=== PATIENT | female | born 1965 | race Caucasian/White ===

== ENCOUNTER 2017-03-24 14:48 | Inpatient (IN) | payer BC ==
[~2017-03-24] VITALS: Ht 152.4 cm; Wt 52.6 kg
--- NOTE | ~2017-03-24 | HP ---
Unit #: [id number] #: [id number] Patient: DIXON PATTEN [id number] [facility] [address] [place] [address] [id number] MR#: [id number] NAME: DIXON PATTEN ROOM: P252 Age: 51 Sex: F Admission Date: 03/24/2017 : 1965 Attending Physician: Maykel Griffin M.D. Admitting Physician: Maykel Griffin M.D. Primary Care Physician: Primary Care Physician No HISTORY AND PHYSICAL HISTORY OF PRESENT ILLNESS Dixon is a 51-year-old female admitted on 03/24/2017 for attempted suicide by overdosing on pills and hanging herself. She does not speak [place], and an charge entry was here for the exam. PAST MEDICAL HISTORY Hypertension. The patient currently on antibiotic, but unsure why. PAST SURGICAL HISTORY Complete hysterectomy. SOCIAL HISTORY Denies tobacco, alcohol, or illegal drug use. She is currently single and living with a cousin in [place]. FAMILY HISTORY Noncontributory. REVIEW OF SYSTEMS CONSTITUTIONAL: No fever or chills. HEENT: Denies any sore throat, ear pain or runny nose. CARDIOVASCULAR: Denies chest pain, irregular heart rhythm or palpitations. CHEST: Denies shortness of breath or cough. No hemoptysis. GASTROINTESTINAL: Denies nausea, vomiting, diarrhea or chronic constipation. ENDOCRINE: Denies history of increased thirst or urination. No recent significant weight loss or gain. GENITOURINARY: Denies dysuria, frequency, or hematuria. SKIN: Denies any rashes. HEMATOLOGIC: Denies history of increased bleeding or bruising. MUSCULOSKELETAL: Denies any hot, swollen joints. No generalized muscle pain. NEUROLOGIC: Denies problems with vision or speech. No frequent, severe headaches. No numbness, tingling or weakness in any extremities. Denies loss of bladder or bowel control. CURRENT MEDICATIONS Ceftin. ALLERGIES No known drug allergies. PHYSICAL EXAMINATION Unit #: [id number] #: [id number] Patient: DIXON PATTEN GENERAL: Alert, oriented, no acute distress. VITAL SIGNS: Blood pressure 131/78, heart rate 80, temperature 98.4. HEIGHT: 5 feet 0. WEIGHT: 116 pounds. SKIN: Warm, dry. No rashes or lesions, track narayanan, cuts, etc. HEENT: Normocephalic. TMs not viewed. Oronasal passages clear. Conjunctivae clear. PERRLA. EOM is intact. NECK: No lymphadenopathy or thyromegaly. HEART: Regular rate and rhythm. No murmur, gallop, or rub. LUNGS: Clear to auscultation bilaterally. ABDOMEN: Soft, nontender without palpable masses or hepatosplenomegaly. : Not assessed. EXTREMITIES: No evidence of cyanosis, clubbing, or edema. Moves all extremities independently without obvious deficit. NEUROLOGICAL: Grossly within normal limits. Cranial Nerves: II: Visual larsen are intact. III, IV AND : Extraocular movements are intact. Pupils are equal, round and reactive to light. V: Facial sensation is grossly normal. VII: Facial movements and expression are normal. VIII: Auditory acuity grossly intact. IX, X: Uvula is midline. Phonation is normal. XI: Patient shrugs shoulders and turns head normally. XII: Tongue protrudes in the midline. Sensory and Motor Function: Sensory and motor sensation is grossly normal. Motor: moves all extremities well. Coordination: Gait is normal. Deep Tendon Reflexes: Intact. IMPRESSION 1. Psychiatric admission. 2. Hypertension. The patient currently on antibiotics, but unsure why. RECOMMENDATIONS PSYCHIATRIC: Per psychiatrist. MEDICAL: No contraindication to participate in this facility's activities. MEDICAL PROGNOSIS Good. MEDICAL CONDITION Stable. Dictated by... Azucnea Canales TD: 03/25/2017 15:36 JOB #: [id number] Unit #: [id number] #: [id number] Patient: DIXON PATTEN HISTORY AND PHYSICAL Page 1 of 1 X KANG BACA APRN HISTORY AND PHYSICAL
--- NOTE | ~2017-03-24 | PN ---
Unit #: [id number] #: [id number] Patient: DIXON PATTEN [id number] [facility] [address] [place] [address] [id number] I MR#: [id number] NAME: DIXON PATTEN ROOM: [facility] Age: 51 Sex: F Admission Date: 03/24/2017 : 1965 Attending Physician: Maykel Griffin M.D. Admitting Physician: Maykel Griffin M.D. Primary Care Physician: Primary Care Physician Saskia IGNACIO NOTES DATE OF SERVICE: 03/26/2017 DISCUSSION Ms. Layne is a 51-year-old female, seen on 03/26/2017. The patient interviewed, chart reviewed, and obtained information from nursing staff. The patient was compliant, cooperative, interviewed with the help of an interpreter and translator. The patient reports mood is getting better, decrease in anxiety. Denied any thoughts of harming self or others. Complete review of systems unremarkable. MENTAL STATUS EXAMINATION General appearance, the patient dressed casually. Attention span and concentration, fair. Oriented in time, place, and person. Mood and affect, sad and dysphoric. Speech, monotone. Thought process, concrete. The patient denied any thoughts of harming self or others or any psychotic symptom. Recent and remote memory, poor. Insight and judgment, poor. DIAGNOSES Major depressive disorder, severe. ASSESSMENT AND PLAN Advised to continue with current medication and plan to consider discharge next week with a plan to follow up in outpatient program. Dictated by... Harvey Singer/carlitos TD: 03/26/2017 12:24 JOB #: [id number] Unit #: [id number] #: [id number] Patient: DIXON PATTEN ADONAYDALIA PROGRESS NOTES Page 1 of 1 X Maykel Griffin MD PROGRESS NOTE
--- NOTE | ~2017-03-24 | DS ---
Unit #: [id number] #: [id number] Patient: DIXON PATTEN [id number] [facility] [address] [place] [address] [id number] MR#: [id number] NAME: DIXON PATTEN ROOM: [facility] Age: 51 Sex: F Admission Date: 03/24/2017 : 1965 Discharge Date: 03/27/2017 Attending Physician: Maykel Griffin M.D. Primary Care Physician: Primary Care Physician No DISCHARGE SUMMARY REASON FOR ADMISSION Depression. DIAGNOSTIC STUDIES LABORATORY DATA: Unremarkable. HOSPITAL COURSE The patient was admitted to inpatient unit on March 24 and discharged on 03/27/2017. The patient was treated with group therapy, individual therapy, and medication management with the help of dental front office assistant. The patient was responsive to treatment. Subsequently the patient was discharged with a plan to follow up in outpatient clinic. DISCHARGE MEDICATIONS 1. Celexa 20 mg daily for depression. 2. Trazodone 50 mg at bedtime for sleep. 3. Vistaril 25 mg twice daily for anxiety. DISCHARGE DIAGNOSES PSYCHIATRIC: Major depressive disorder, recurrent, severe. SECONDARY: Deferred. MEDICAL: Hypertension. STRESSORS: Psychosocial stressor. FOLLOWUP CARE The patient to follow up in outpatient clinic as per social sciences instructor. CONDITION AT DISCHARGE The patient pleasant, cooperative. Denied any psychotic symptom or any suicidal ideation. PROGNOSIS Guarded. DIET AND ACTIVITY As tolerated. Dictated by... Maykel Griffin M.D. [facility] [place] Unit #: [id number] #: [id number] Patient: DIXON PATTEN TD: 03/30/2017 07:01 JOB #: [id number] DISCHARGE SUMMARY Page 1 of 1 X Maykel Griffin MD X DISCHARGE SUMMARY
--- NOTE | ~2017-03-24 | PA ---
Unit #: [id number] #: [id number] Patient: DIXON VILLARREAL [id number] [facility] [address] [place] [address] [id number] I MR#: [id number] NAME: DIXON VILLARREAL ROOM: [facility] Age: 51 Sex: F Admission Date: 03/24/2017 : 1965 Date of Assessment: Attending Physician: Maykel Griffin M.D. Admitting Physician: Maykel Griffin M.D. Primary Care Physician: Primary Care Physician No PSYCHIATRIC ASSESSMENT INFORMANT Patient reliability, fair informant. Chart reliability, good. CHIEF COMPLAINT Depression and suicidal ideation. HISTORY OF PRESENT ILLNESS Ms. Dixon Villarreal is a 51-year-old, [place]-speaking female from [place], recently moved to [facility]. 5 years ago. Lives in [place]. The patient was admitted with the above-mentioned complaint. The patient was interviewed with the help of translator and interpreter. The patient reported family conflict moving out of the house, depression, crying spell, hopelessness, worthlessness, suicidal ideation. The patient denied any homicidal ideation or any psychotic symptom. Denied any use of any drugs or alcohol. The patient reports good support system from the relatives. The patient is needing inpatient admission at this time for psychiatric stabilization. PAST PSYCHIATRIC HISTORY Unknown for any history of any previous treatment. No history of any suicide attempt or any inpatient treatment. FAMILY HISTORY AND SOCIAL HISTORY The patient has a good support system from family, but currently having marital conflict, for 14 years. No history of abuse. MEDICAL HISTORY Remarkable for history of hypertension. Musculoskeletal, muscle strength and tone, no atrophy or abnormal movement. Gait normal. MEDICATION HISTORY The patient is on antihypertensive, medication unknown. ALLERGIES No known drug allergies are present. SUBSTANCE ABUSE HISTORY None. REVIEW OF SYSTEMS REVIEW OF SYSTEMS HEENT: Eyes, clear. Ears, nose, mouth, and throat; clear. Unit #: [id number] #: [id number] Patient: DIXON VILLARREAL CARDIOVASCULAR: Unremarkable. RESPIRATORY: Unremarkable. GI: Unremarkable. : Unremarkable. SKIN: Unremarkable. LYMPH NODE: Unremarkable. NEUROLOGIC: Unremarkable. ENDOCRINE: Unremarkable. HEMATOLOGIC: Unremarkable. ALLERGIC/IMMUNOLOGIC: Unremarkable. MUSCULOSKELETAL: Muscle strength and tone, no atrophy or abnormal movement. Gait normal. MENTAL STATUS EXAMINATION CONSTITUTIONAL: Measurement of vital signs; temperature 97.3, 82, 16, 101/56. Height 5 feet. Weight 116 pounds. GENERAL APPEARANCE: The patient dressed casually. The patient did not show any facial deformity. MUSCULOSKELETAL: Please see above. PSYCHIATRIC EXAMINATION Description of speech; regular rate, normal volume, normal articulation, coherent, and spontaneous. Description of thought process, goal directed. Description of association, intact. DIAGNOSES Psychiatric: Major depressive disorder, recurrent, severe. Secondary diagnosis: Deferred. Medical diagnosis: Hypertension. Stressors: Psychosocial stressors. PSYCHIATRIC PLAN AND TREATMENT GOAL AND DISCHARGE PLAN 1. Advised to admit the patient on the inpatient unit. Provide safe, supportive, and structured environment. 2. Ordered labs; CBC, CMP, UA, and UDS. 3. The patient to be monitored for any self-harming behavior. Advised Vistaril, trazodone, and Celexa combination. If needed, consider further adjustment of medication. The patient to follow up with the marriage and family social worker about placement. 4. Treatment goal; to attain euthymic mood, gain insight into her problem, and learn coping skills. 5. Discharge plan; plan to stabilize the patient and consider followup in outpatient program. ESTIMATED LENGTH OF STAY 3 to 5 days. Flory TD: 03/26/2017 03:51 JOB #: [id number] Dictated by... Unit #: [id number] #: [id number] Patient: DIXON VILLARREAL Harvey Singer TD: 03/26/2017 04:49 JOB #: [id number] PSYCHIATRIC ASSESSMENT Page 1 of 1 X Maykel Griffin MD PSYCHIATRIC ASSESSMENT
--- NOTE | ~2017-03-24 | PA ---
Unit #: [id number] #: [id number] Patient: DIXON PATTEN [id number] [facility] [address] [place] [address] [id number] I MR#: [id number] NAME: DIXON PATTEN ROOM: [facility] Age: 51 Sex: F Admission Date: 03/24/2017 : 1965 Date of Assessment: Attending Physician: Maykel Griffin M.D. Admitting Physician: Maykel Griffin M.D. PSYCHIATRIC ASSESSMENT ADDENDUM This is an addendum for initial psych assessment. DIAGNOSES Psychiatric: Major depressive disorder, recurrent, severe. Secondary diagnosis: Deferred. Medical diagnosis: Hypertension. Stressors: Psychosocial stressors. PSYCHIATRIC PLAN AND TREATMENT GOAL AND DISCHARGE PLAN 1. Advised to admit the patient on the inpatient unit. Provide safe, supportive, and structured environment. 2. Ordered labs; CBC, CMP, UA, and UDS. 3. The patient to be monitored for any self-harming behavior. Advised Vistaril, trazodone, and Celexa combination. If needed, consider further adjustment of medication. The patient to follow up with the social media strategist about placement. 4. Treatment goal; to attain euthymic mood, gain insight into her problem, and learn coping skills. 5. Discharge plan; plan to stabilize the patient and consider followup in outpatient program. ESTIMATED LENGTH OF STAY 3 to 5 days. Dictated by... Maykel Griffin M.D. [facility]/raull TD: 03/26/2017 03:51 JOB #: [id number] Unit #: [id number] #: [id number] Patient: DIXON PATTEN PSYCHIATRIC ASSESSMENT Page 1 of 1 X Maykel Griffin MD X PSYCHIATRIC ASSESSMENT
[2017-03-25 13:03] LABS: URINE APPEARANCE CLOUDY; URINE BILIRUBIN NEG (NEG); URINE BLOOD NEG (NEG); URINE COLOR YELLOW; URINE GLUCOSE NEG (NEG); URINE KETONE NEG (NEG); URINE LEUKOCYTE ESTERASE 1+ (NEG); URINE NITRATE NEG (NEG); URINE PROTEIN NEG (NEG); URINE SPECIFIC GRAVITY 1.019 (1.003-1.035); URINE UROBILINOGEN 0.2 MG/DL (NEG)
[2017-03-25 13:07] LABS: URINE BACTERIA AUWI 1+ (NEGATIVE); URINE SQUAMOUS EPITHELIAL CELL OCC /[HPF]; UWBCS1 AUWI 25-50 (0-5)
[2017-03-25 13:21] LABS: URINE MUCUS PRESENT
[2017-03-25 14:15] LABS: AMPHETAMINE NEG (NEG); BARBITURATES POS (NEG); BENZODIAZEPINES POS (NEG); COCAINE NEG (NEG); MARIJUANA NEG (NEG); OPIATES NEG (NEG); TRICYCLIC ANTIDEPRESSANTS NEG (NEG); U METHADONE NEG (NEG)
[2017-03-27 12:55] LABS: BASOPHIL% 0.5 % (0-2.5); DIFF IND NO; EOSINOPHIL# 0.1 X10e3 (0-0.7); EOSINOPHIL% 1.5 % (0.0-7.0); HEMATOCRIT 37.7 % (35.0-45.0); HEMOGLOBIN 13.1 gm/dL (12.0-16.0); LYMPHOCYTE% 23.3 % (17.0-45.0); MEAN CELL VOLUME 90.3 FL (83-96); MEAN CORPUSCULAR HEMOGLOBIN 31.3 PG (28-34); MEAN CORPUSCULAR HGB CONC 34.7 g/dL (30-36); MEAN PLATELET VOLUME 7.3 FL (6.5-11.5); MONOCYTE# 0.3 X10e3 (0-1.0); MONOCYTE% 7.2 % (3.0-12.0); NEUTROPHIL% 67.5 % (40-75); PLATELET COUNT 295 X10e3 (140-420); RED BLOOD COUNT 4.17 X10e (3.90-5.30); RED CELL DISTRIBUTION WIDTH 12.2 % (11.0-15.5); WHITE BLOOD COUNT 4.5 X10e3 (4.0-10.5)
[2017-03-27 12:57] LABS: ALBUMIN SERUM 3.8 g/dL (3.5-5.0); BILIRUBIN,TOTAL 0.3 mg/dL (0.2-2.0); BUN/CREATININE RATIO 28.57; CALCIUM SERUM 9.1 mg/dL (8.4-10.2); CREATININE SERUM 0.7 mg/dL (0.6-1.4); GLOM FILT RATE Estimated 99.6 mL/min (>60); PROTEIN TOTAL SERUM 6.5 g/dL (6.0-8.3)
== END 2017-03-27 18:00 | disposition home or self-care (01) | DRG 885 ==
LOC: EDSEX 23:49 → P2L 23:49
PROVIDERS: Psychiatry & Neurology Psychiatry
DX: F33.2 Major depressive disorder, recurrent severe without psychotic features (principal); R45.851 Suicidal ideations; I10 Essential (primary) hypertension
CPT/HCPCS: 80053; 80307; 81003; 85025